=== PATIENT | female | born 1975 | race Caucasian/White ===

== ENCOUNTER → 2019-09-15 | Outpatient (CLI) | payer OTHER ==
--- NOTE | 2019-09-15 11:25 | Diagnostic Imaging Report ---
Exam: Pelvic ultrasound. History: Amenorrhea Comparison: None LMP: January 2019 Findings: Transabdominal sonographic evaluation of the pelvis. The uterus is anteverted in position, measuring 11.0 x 5.6 x 5.3cm. No uterine mass. Endometrial stripe thickness is 5 mm. The right ovary measures 2.7 x 1.6 x 2.2 cm and contains a 1.2 cm physiologic follicle. The left ovary measures 2.5 x 1.6 x 2.2 cm and appears unremarkable. No free fluid in the pelvis. Impression: Unremarkable pelvic ultrasound. Signed by: Alessandra Barajas MD on 09/15/2019 11:21 AM
== END ==
LOC: US 09:19
PROVIDERS: ATTEND Internal Medicine
DX: N91.2 Amenorrhea, unspecified (principal)
CPT/HCPCS: 76856; 81025